=== PATIENT | male | born 1955 | race Caucasian/White ===

== ENCOUNTER → 2018-02-18 | Outpatient (REF) | payer BC ==
[2018-02-18 16:38] LABS: ALBUMIN 4.2 GM/DL (3.2-5.2); ALBUMIN/GLOBULIN RATIO 1.17 (1.00-1.93); ALKALINE PHOSPHATASE 54 U/L (45-117); ALT/SGPT 69 U/L (12-78); AST/SGOT 54 U/L (7-37); BILIRUBIN,DIRECT 0.1 MG/DL (0.0-0.2); BILIRUBIN,TOTAL 0.6 MG/DL (0.2-1.0); FERRITIN 224 NG/ML (26-388); IRON (FE) 97 UG/DL (65-175); PERCENT SATURATION 26.6 % (19.7-50.0); TOTAL IRON BINDING CAPACITY 364 UG/DL (250-450); TOTAL PROTEIN 7.8 GM/DL (6.4-8.2)
[2018-02-19 09:59] LABS: ALPHA FETOPROTEIN TUMOR QUANT 2.4 NG/ML (<8.1)
[2018-02-19 11:52] LABS: HEPATITIS B SURFACE ANTIBODY NEGATIVE (POSITIVE)
[2018-02-19 12:03] LABS: HEPATITIS B SURFACE ANTIGEN NEGATIVE (NEGATIVE)
[2018-02-19 12:31] LABS: HEPATITIS C VIRUS ABY INDEX 0.1 INDEX (<0.8)
[2018-02-21 00:20] LABS: ANTI-MITOCHONDRIAL ANTIBODY 7.4 Units (0.0-20.0); ANTINUCLEAR ANTIBODIES DIRECT Negative (Negative); HEPATITIS A IgG TOTAL Negative (Negative); HEPATITIS B CORE ANTIBODY IGG Negative (Negative); LIVER-KIDNEY MICROSOMAL ABY 1.2 Units (0.0-20.0)
[2018-02-21 00:20] LABS: ANTI-SMOOTH MUSCLE ANTIBODY 9 Units (0-19)
== END ==
LOC: M LAB REF 13:55
DX: R93.3 Abnormal findings on diagnostic imaging of other parts of digestive tract (principal)
CPT/HCPCS: 83550

== ENCOUNTER 2018-02-26 06:47 | Day surgery (SDC) | payer BC ==
[2018-02-26] MEDS ORDERED: NS 1,000 ML IV (07:00)
[2018-02-26] MEDS ORDERED: SOTALOL HCL 80 MG TAB PO (07:45)
[2018-02-26] MEDS ORDERED: LIDOCAINE 2% INJ 100 MG/5 ML SDV (FOR ANES.) As Ordered (08:32)
[2018-02-26] MEDS ORDERED: PROPOFOL 200 MG/20 ML VIAL As Ordered (08:32)
== END 2018-02-26 09:02 | disposition home or self-care (01) ==
LOC: M OPP 06:47
DX: Z12.11 Encounter for screening for malignant neoplasm of colon (principal); D12.2 Benign neoplasm of ascending colon; K57.30 Diverticulosis of large intestine without perforation or abscess without bleeding; K64.8 Other hemorrhoids; I10 Essential (primary) hypertension; E78.5 Hyperlipidemia, unspecified; Z86.19 Personal history of other infectious and parasitic diseases; Z95.0 Presence of cardiac pacemaker; E10.9 Type 1 diabetes mellitus without complications; E03.9 Hypothyroidism, unspecified; K76.89 Other specified diseases of liver; G47.30 Sleep apnea, unspecified; R06.83 Snoring; Z79.01 Long term (current) use of anticoagulants; Z79.899 Other long term (current) drug therapy; Z80.9 Family history of malignant neoplasm, unspecified
CPT/HCPCS: 45380

== ENCOUNTER → 2018-03-22 | Outpatient (CLI) | payer BC | LOC: M RAD 08:24 | DX: R93.3 Abnormal findings on diagnostic imaging of other parts of digestive tract (principal); K76.0 Fatty (change of) liver, not elsewhere classified; K76.89 Other specified diseases of liver | CPT/HCPCS: 76705 ==

== ENCOUNTER → 2018-08-17 | Outpatient (CLI) | payer BC ==
[~2018-08-17] MED LIST: AMLO10TA PO; ATOR1TAB19 PO; CHLO125TA PO; LANTINJ4 SC; LEVO50TA5 PO; LOSA100T50 PO; METF500T13 PO; SOTA80TA2 PO; XARE10TA PO
[2018-08-17 17:28] LABS: ALBUMIN 4.4 GM/DL (3.2-5.2); ALT/SGPT 57 U/L (12-78); BILIRUBIN,DIRECT 0.2 MG/DL (0.0-0.2); BILIRUBIN,TOTAL 0.5 MG/DL (0.2-1.0); BLOOD UREA NITROGEN 19 MG/DL (7-18); CREATININE FOR GFR 1.03 MG/DL (0.70-1.30); GLOMERULAR FILTRATION RATE > 60.0 (>49); TOTAL PROTEIN 7.7 GM/DL (6.4-8.2)
== END ==
LOC: M SMT 11:16
PROVIDERS: ATTEND Internal Medicine Gastroenterology
DX: D13.4 Benign neoplasm of liver (principal); R94.5 Abnormal results of liver function studies

== ENCOUNTER → 2021-12-05 | Outpatient (CLI) | payer MEDICARE, OTHER ==
[~2021-12-05] MED LIST changes: +AMLO1TAB24 PO; +ASPI1CHW2 PO; +CARV3.12 PO; +CHLO50TA PO; +FARX1TAB5; +LEVE1INJ5 SQ; +LOSA100T45 PO; -LOSA100T50 PO; +METF10004; +OMEG12002 PO; +POTA1TAB14 PO
== END ==
LOC: M SLEEP 20:00
PROVIDERS: ATTEND Physician Assistant
DX: G47.33 Obstructive sleep apnea (adult) (pediatric) (principal)

== ENCOUNTER → 2022-02-20 | Outpatient (CLI) | payer MEDICARE | LOC: M SLEEP 20:00 | PROVIDERS: ATTEND Physician Assistant | DX: G47.33 Obstructive sleep apnea (adult) (pediatric) (principal) ==